=== PATIENT | male | born 1990 | race Caucasian/White ===

== ENCOUNTER 2016-09-30 09:45 | Day surgery (SDC) | payer OTHER ==
[~2016-09-30 09:45] MED LIST: Buffered Lidocaine 0.9% SYRIN* 5 ML/SYR SYRINGE INTRADERM ONE; Dexamethasone IV* 4 MG/ML 1 ML (4 MG) IV SLOW PU ONE; Famotidine IV* 10 MG/ML 2 ML (20 mg) IV ONE; ceFAZolin 2 GM PREMIX (*) 100 ML IVPB ONE
[2016-09-30] MEDS ORDERED: Famotidine IV* 10 MG/ML 2 ML (20 mg) ONE (09:56)
[2016-09-30] MEDS ORDERED: Dexamethasone IV* 4 MG/ML 1 ML (4 MG) ONE (09:56)
[2016-09-30] MEDS ORDERED: Buffered Lidocaine 0.9% SYRIN* 5 ML/SYR SYRINGE ONE (09:56)
[2016-09-30] MEDS ORDERED: Ketorolac INJ* 30 MG/ML 1 ML VIAL ONE (10:08)
[2016-09-30] MEDS ORDERED: Bupivacaine 0.5% W/EPI SDV* 30 ML VIAL ONE ×2 (11:06→11:13)
[2016-09-30] MEDS ORDERED: Lidocaine 2% JELLY* 6 ML JELLY TOPICAL ONE (11:06)
[2016-09-30] MEDS ORDERED: Lidocaine 1% INJ* 10 MG/ML 30 ML SDV ONE ×2 (11:06→11:13)
[2016-09-30] MEDS ORDERED: fentaNYL* 50 MCG/ML 2 ML VIAL (100 MCG VIAL) ONE (11:27)
[2016-09-30] MEDS ORDERED: Midazolam* 1 MG/ML 5 ML VIAL (5 MG) ONE (11:27)
[2016-09-30] MEDS ORDERED: Lidocaine 2% PF * 5 ML VIAL ONE (11:43)
[2016-09-30] MEDS ORDERED: Propofol* 10 MG/ML 20 ML BTL IV PUSH ONE (11:43)
[2016-09-30] MEDS ORDERED: Ondansetron INJ* 2 MG/ML VIAL ONE (12:00)
[2016-09-30 13:02] VITALS: BP 128/86
--- NOTE | 2016-10-01 01:48 | OP ---
CC: Rhett Ferreira MD; Virgilio Pate NP, [facility] * DATE OF OPERATION: 09/30/16 - [facility] DATE OF : 88 SURGEON: Angelo Funk MD. CLAIM INVESTIGATOR: None. ANESTHESIOLOGIST: Dr. Graham. ANESTHESIA: LMAC. PRE-OP DIAGNOSIS: Perineal sinus tract or fistula tract. POST-OP DIAGNOSIS: Perineal sinus tract or fistula tract. OPERATIVE PROCEDURE: Incision and drainage of perianal sinus tract (fistulotomy ). DESCRIPTION OF PROCEDURE: The patient was given intravenous sedation and placed in the prone jackknife position, the buttocks were taped apart and prepped with antiseptic and draped in a sterile fashion. There was an external opening to the sinus tract, maybe 2 cm from the anal verge and at approximately the 5 o' clock position. This sinus tract tunnels anteriorly towards the posterior scrotum. There are the remnants of the previous abscess cavity there , which still has a small opening and a fistula probe connects between the two, so in essence there is a fistulous tract through the sinus cavity. The cavity was laid open using electrocautery. It was less than a centimeter in depth throughout. There was some soupy granulation in the base of the tract and this was either swabbed out or ablated with cautery as appropriate. The anoscopy was carried out. No evidence of communication to the anal canal was identified , neither from the external orifice nor from internally in the anal canal. Gauze bandages were placed. He tolerated the procedure well and was brought to Recovery in good condition. There are no complications. No drains. No pathologic specimens. Sponge and instrument counts correct. Estimated blood loss is less than 10 mL. [id number]/[facility] #: [id number] [facility]
== END 2016-09-30 13:20 | disposition home or self-care (01) ==
LOC: OR 09:45
PROVIDERS: ATTEND Surgery
DX: L08.89 Other specified local infections of the skin and subcutaneous tissue (principal); F90.9 Attention-deficit hyperactivity disorder, unspecified type
CPT/HCPCS: J0690; J1100; J1885; J2001; J2250; J2405; J2704; J3010